=== PATIENT | male | born 1970 | race Caucasian/White ===

== ENCOUNTER 2021-06-12 12:53 | Emergency (ER) | payer BC, SELFPAY ==
[2021-06-12 12:54] VITALS: BP 155/90; PULSE 84; RESP 16; TEMP 36.8; O2SAT 97; BMI 27.0
--- NOTE | 2021-06-12 13:05 | CT_ITS ---
PROCEDURE: CT HEAD/BRAIN WO CON CLINICAL INDICATION: dizziness COMPARISON: No exams were available for comparison TECHNIQUE: Axial images obtained. All CT scans at the facility use one or more dose reduction, viz: automated exposure control, ma/kV adjustment per patient size (including targeted exams where dose is matched to indication, i.e. head), or iterative reconstruction technique. FINDINGS: No midline shift, mass effect, intracranial hemorrhage, hydrocephalus, or extra-axial fluid collection is evident. The calvarium has an unremarkable appearance. No mastoid effusion. No sinus air-fluid level. IMPRESSION: No acute intracranial finding Dictated by: Jay Cardozo MD 06/12/2021 13:44 Jay Cardozo MD in [facility] 06/12/2021 13:44
--- NOTE | 2021-06-12 13:05 | CT_ITS ---
Procedure: CT ANGIO NECK CTA HEAD CLINICAL HISTORY: dizziness COMPARISON: CT CT ANGIO HEAD from 06/12/2021 TECHNIQUE: IV Contrast: 100ml Isovue 370 Axial images obtained with sagittal and coronal reformats. All CT scans at the facility use one or more dose reduction, viz: automated exposure control, ma/kV adjustment per patient size (including targeted exams where dose is matched to indication, i.e. head), or iterative reconstruction technique. FINDINGS: CTA neck: The aortic arch has an unremarkable appearance as does the proximal aspect of the great vessels. Right carotid: Right common and right internal carotid artery have an unremarkable appearance. Left carotid: The left common and internal carotid artery have an unremarkable appearance. Right vertebral: Right vertebral is dominant. No stenotic lesions. No evidence of dissection Left vertebral: The left vertebral artery originates from the aortic arch and is hypoplastic. No significant stenotic lesion is evident. The right vertebral ends in PICA. CTA head: There is generalized luminal irregularity of the distal ICAs and M1 segments of both middle cerebral arteries. No carotid stenosis, occlusive change, or aneurysm is evident. The right vertebral gives rise to the basilar artery. The left vertebral ends in PICA. No aneurysm AVM or dissection. Incidental note is made of a 10 mm right thyroid nodule which is slightly hypodense may be due to cyst. No midline shift or mass effect. No enhancing lesions apparent IMPRESSION: 1. Negative CTA of the neck. 2. Mild luminal irregularity of the distal ICAs and M1 segments on both sides which may be seen with mild atheromatous changes. No significant stenotic lesion. No occlusion, aneurysm, AVM, or dissection. Dictated by: Jay Cardozo MD 06/12/2021 13:57 Jay Cardozo MD in [facility] 06/12/2021 13:57
[2021-06-12 13:27] LABS: Chloride 103 mmol/L (98-107); Potassium 4.3 mmoL/L (3.5-5.1); Sodium 142 mmol/L (136-145)
[2021-06-12 13:29] LABS: Blood Urea Nitrogen 18 mg/dl (9-20)
[2021-06-12 13:30] LABS: Alanine Aminotransferase 38 U/L (12-78); Albumin Level 4.6 g/dl (3.5-5.0); Albumin/Globulin Ratio 1.2 (1.1-1.8); Alkaline Phosphatase 84 U/L (38-126); Anion Gap 12.3 mEq/L (5-15); Aspartate Amino Transferase 30 U/L (17-59); Basophils % 0.2 % (0.1-2.0); Bilirubin,Total 0.7 mg/dl (0.2-1.3); Calcium 9.2 mg/dl (8.4-10.2); Carbon Dioxide 31 mmol/L (22.0-30.0); Creatinine Clearance Estimated 106 mL/min (50-200); Eosinophils % 0.2 % (0.1-12.0); Estimated Glomerular Filt Rate 71 ml/min (>60); GFR (African American) 86 ML/MIN (>60); Globulin 3.9 g/dL (1.3-3.2); Glucose 133 mg/dl (74-100); Hematocrit 45.6 % (42.0-52.0); Hemoglobin 15.3 g/dL (14.1-18.0); Lymphocytes # 2.3 K/mm3 (0.7-4.5); Lymphocytes % 15.9 % (10-50); Magnesium 1.8 mg/dl (1.6-2.3); Mean Corpuscular HGB Conc 33.5 g/dL (31.8-35.4); Mean Corpuscular Hemoglobin 29.9 pg (27.0-31.2); Mean Corpuscular Volume 89.3 fl (80-94); Mean Platelet Volume 7.8 fl (7.4-10.4); Monocytes # 0.9 K/mm3 (0.1-1.0); Monocytes % 6.5 % (1.7-9.3); Neutrophils # 10.9 K/mm3 (1.8-7.8); Neutrophils % 77.2 % (37.0-80.0); Platelet Count 318 K/mm3 (142-424); Red Blood Count 5.11 M/mm3 (4.60-6.20); Red Cell Distribution Width 13.6 % (11.5-17.5); Total Protein,Serum 8.5 g/dl (6.3-8.2); White Blood Count 14.2 K/mm3 (4.8-10.8)
--- NOTE | 2021-06-12 13:48 | [facility].EDDIZZ ---
ED Disposition Clinical Impression: Dizziness Disposition: Home, Self-Care Condition on Discharge: Good Instructions: Vertigo Referrals: Judson Vasques MD [Primary Care Provider] - - Critical Care Critical Care Time: No Attestation: On 06/12/21, the high probability of a clinically significant, sudden or life threatening deterioration of the following system(s) required my full and direct attention, intervention and personal management. The time I documented below is in addition to time spent performing reported procedures but includes the following listed in this critical care notation. Medical Decision Making - Medical Records Medical records reviewed: Yes: I reviewed the patient's medical records. - Juwan Inquiry Pt receiving controlled substance: No Vital Signs: 06/12/21 12:54 Temperature 98.3 F Temperature Source Oral Pulse Rate [Right] 84 Respiratory Rate 16 Blood Pressure [Right Arm] 155/90 H Blood Pressure Mean [Right Arm] 111 02 Sat by Pulse Oximetry 97 Oxygen Delivery Method Room Air - Lab Data Lab Results 06/12/21 13:11: WBC 14.2 H, RBC 5.11, Hgb 15.3, Hct 45.6, MCV 89.3, MCH 29.9, MCHC 33.5, RDW 13.6, Plt Count 318, MPV 7.8, Neut % (Auto) 77.2, Lymph % (Auto) 15.9, Rock % (Auto) 6.5, Eos % (Auto) 0.2, Baso % (Auto) 0.2, Neut # (Auto) 10.9 H, Lymph # (Auto) 2.3, Rock # (Auto) 0.9, Eos # (Auto) 0.0, Baso # (Auto) 0.0 06/12/21 13:11: Sodium 142, Potassium 4.3, Chloride 103, Carbon Dioxide 31 H, Anion Gap 12.3, BUN 18, Creatinine 1.10, Estimated Creat Clear 106, Estimated GFR 71, Est GFR ( Amer) 86, Glucose 133 H, Calcium 9.2, Magnesium 1.8, Total Bilirubin 0.7, AST 30, ALT 38, Alkaline Phosphatase 84, Total Protein 8.5 H, Albumin 4.6, Globulin 3.9 H, Albumin/Globulin Ratio 1.2, TSH 0.99 Result diagrams: 06/12/21 13:11 06/12/21 13:11 Orders (Tests/Meds): ED MEDICATIONS Discontinued Medications Generic Name Dose Route Start Last Admin Trade Name Edna PRN Reason Stop Dose Admin Sodium Chloride 1,000 mls @ 999 mls/hr 06/12/21 13:15 06/12/21 13:32 Sod Chlor 0.9% 1000ml Bag IV 06/12/21 14:15 999 mls/hr .Q1H1M KIKA Administration Iopamidol 100 ml 06/12/21 13:25 06/12/21 13:26 Iopamidol-370 (76%);100ml Bottle IV 06/12/21 13:26 100 ml ONCE ONE Administration Metoclopramide HCl 10 mg 06/12/21 13:06 06/12/21 13:32 Metoclopramide Hcl 10mg/2ml Vial IVP 06/12/21 13:07 10 mg ONCE ONE Administration Sodium Chloride 50 ml 06/12/21 13:25 06/12/21 13:26 0.9 % Sodium Chloride 50 Ml Vial IV 06/12/21 13:26 50 ml ONCE ONE Administration ORDERS Category Date Time Status Rapid PCR Covid and Flu A/B Stat Lab 06/12/21 14:22 Ordered Medical Decision Narrative: 50-year-old male presents with persistent dizziness. Neurological exam was otherwise unremarkable with no focal deficits. Unlikely to be posterior circulation issue or cerebellar issue. CT and CT angio obtained as screening exams. In the meantime given another dose of Reglan in the emergency department with IV fluids. Discussed case with Dr. Vasques as well who did recommend imaging. CTs were negative for central issue. He was feeling better on reexamination. Plan to refer to outpatient and Dr. Vasques to follow-up with patient as well Dizzy HPI - General Chief Complaint: Dizziness Stated Complaint: dizziness Time Seen by Provider: 06/12/21 13:00 Mode of Arrival: Family Vehicle Limitations: No Limitations Description of Symptoms (Recalled from ER Triage Doc. by RN): Patient reports dizziness for the last week. Patient reports he has a hx of dizziness in the past. Patient reports the dizziness is worse with head movement. Patient denies hx of a diagnosis vertigo. - History of Present Illness HPI Narrative: 50-year-old male presents with persistent dizziness. He says that he has a dizzy episode when he turns his head. He was recently evaluated by his primary care physic
[2021-06-12 14:00] VITALS: BP 135/80; PULSE 65; RESP 18; TEMP 36.8; O2SAT 97
[2021-06-12 14:01] LABS: Thyroid Stimulating Hormone 0.99 uIU/mL (0.465-4.68)
[2021-06-12 14:51] LABS: Coronavirus 19, PCR Not Detected (NotDetected); Influenza A, PCR Not Detected (NotDetected); Influenza B, PCR Not Detected (NotDetected)
== END 2021-06-12 14:45 | disposition home or self-care (01) ==
PROVIDERS: Emergency Provider Emergency Medicine; PCP Emergency Medicine
DX: R42 Dizziness and giddiness (principal); I10 Essential (primary) hypertension; Z87.891 Personal history of nicotine dependence; Z11.52 Encounter for screening for COVID-19
CPT/HCPCS: 70450; 70496; 70498; 80053; 83735; 84443; 85025; 96365; 99283; Q9967; U0003

== ENCOUNTER → 2021-06-20 09:27 | Outpatient (CLI) | payer BC, SELFPAY ==
--- NOTE | 2021-06-20 09:28 | MR_ITS ---
PROCEDURE: MR HEAD/BRAIN WO/W CON CLINICAL INDICATION: Recurrent dizziness, imbalance, sick delirium COMPARISON: No exams were available for comparison TECHNIQUE: Routine multiplanar multi echo sequences are performed without and with gadolinium enhancement. FINDINGS: No midline shift, mass effect, intracranial hemorrhage or acute infarction evident. There is a small nodular area of enhancement in the CP angle on the right lying along the anterior aspect of the cerebellum and the inferior aspect of the 7th and 8th nerve complex best detected on the post enhanced axial images series 9/image 7. This area measures 5 mm. This small lesion is isointense on T1 and T2. This is extra canalicular. This does not demonstrate restricted diffusion. No other areas of abnormal enhancement are evident. The pituitary, optic chiasm, corpus callosum, and craniocervical junction has an unremarkable appearance. There is a small nonspecific T2 white matter hyperintensity in the left frontal parietal junction. The hippocampal gyri have an unremarkable appearance. No mastoid effusion or sinus air-fluid level. The globes have an unremarkable appearance. IMPRESSION: 1. 5 mm enhancing lesion in the right CP angle suspicious for small acoustic neuroma. Small meningioma would be included in the differential diagnosis. This is without mass effect lying along the inferior extra canalicular aspect of the 7th and 8th nerve complex. Dedicated MRI of the CP angles with thin sections without and with contrast may better define this lesion if clinically desired. 2. Otherwise essentially negative MRI of the brain without and with contrast. Dictated by: Jay Cardozo MD 06/20/2021 14:54 Jay Cardozo MD in [facility] 06/20/2021 14:54
== END ==
PROVIDERS: PCP Emergency Medicine; Visit Provider Specialist
DX: R42 Dizziness and giddiness (principal); R26.89 Other abnormalities of gait and mobility
CPT/HCPCS: 70553; A9576

== ENCOUNTER → 2021-06-28 16:13 | Outpatient (CLI) | payer BC, SELFPAY ==
--- NOTE | 2021-06-28 16:14 | MR_ITS ---
PROCEDURE: MR HEAD/BRAIN WO/W CON CLINICAL INDICATION: Dedicated CP angles w/thin sections Recurring dizziness, imbalance, COMPARISON: MR MR HEAD/BRAIN WO/W CON from 06/20/2021 TECHNIQUE: Thin-section multiplanar multi echo sequences are performed without and with gadolinium enhancement. FINDINGS: A small area contrast enhancement is once again noted in the right CP angle as previously described. On thin sections however this appears to be contiguous with the transverse pontine vein and is felt to be related to asymmetric prominence of that structure as opposed to a true CP angle lesion. The left CP angle has an unremarkable appearance. No CP angle mass evident. The thin-section 3D space T2 images also confirm this finding. There is a similar area of enhancement on the left side but is less prominent representing the transverse pontine vein. IMPRESSION: 1. 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 2. Negative MRI of the CP angles. Dictated by: Jay Cardozo MD 07/02/2021 08:11 Jay Cardozo MD in [facility] 07/02/2021 08:11
== END ==
PROVIDERS: PCP Emergency Medicine; Visit Provider Specialist
DX: R42 Dizziness and giddiness (principal); R26.89 Other abnormalities of gait and mobility; G93.9 Disorder of brain, unspecified; R90.89 Other abnormal findings on diagnostic imaging of central nervous system
CPT/HCPCS: 70553; A9576

== ENCOUNTER 2021-07-18 16:30 | Outpatient (RCR) | payer BC, SELFPAY ==
--- NOTE | 2021-07-10 15:51 | [facility].PTOPEV ---
PT Outpatient Evaluation Rehab PT Outpatient Evaluation Start: 07/10/21 14:38 Freq: Status: Active Protocol: Document 07/10/21 14:38 [email or web address] (Rec: 07/10/21 15:50 [email or web address] [id number]) Electronically Signed By Hosea Rojas, PT 07/10/21 14:38 Outpatient Therapy Subjective History Subjective History Pt. is a 50 year old male who presents to Outpatient P.T. clinic w/ c/o subacute and intermittent nystagmus, dizziness, light headedness, and head pouding of insidious onset since 06/06. Pt. reports symptoms were constant at first, but states symptoms are more intermittent at this time. Pt. reports symptoms arising after he quit taking his Hypertension medication, but wasn't sure if there was correlation. Pt. reports quick head movements provoke symptoms. Recent diagnostic imaging(CT scan and MRI of the brain x 2 ea.) were negative per pt. report. Pt. also reports WNL regarding his vision after seeing an Transportation Engineer regarding current symptom complaint. Pt. reports currently being on short term disability at the moment regarding symptoms, but states returning to occupational duties 07/29/21. Pt. RTMD in ~3 wks. Current medications include a steroid pack, Valium, Tylenol, and Aleve. PMH includes Hypertension. Chief Complaint Other Symptom Type Other Symptoms Relieved By Rest/Positioning,Prescription Meds Symptoms Aggravated By Supine,Bending/Stooping, Twisting Prior Functional Limitations None Current Functional Limitations Driving,Standing,Recreation Activity,Walking,Balance, Bending/Stooping Symptom Description Intermittent,Activity Dependent Level of pain today (0-1
== END 2021-08-13 08:13 | disposition home or self-care (01) ==
LOC: PT.CARL 16:30
PROVIDERS: Visit Provider Specialist
DX: R42 Dizziness and giddiness (principal)
CPT/HCPCS: 97163

== ENCOUNTER → 2022-09-01 14:44 | Outpatient (CLI) | payer BC, SELFPAY ==
[2022-09-01 15:05] LABS: Anion Gap 15.8 mEq/L (5-15); Blood Urea Nitrogen 17 mg/dl (9-20); Calcium 10.3 mg/dl (8.4-10.2); Carbon Dioxide 30 mmol/L (22.0-30.0); Chloride 99 mmol/L (98-107); Estimated Glomerular Filt Rate 89 ml/min (>60); GFR (African American) 108 ML/MIN (>60); Glucose 84 mg/dl (74-100); Potassium 4.8 mmoL/L (3.5-5.1); Sodium 140 mmol/L (136-145)
== END ==
PROVIDERS: PCP Emergency Medicine; Visit Provider Emergency Medicine
DX: I10 Essential (primary) hypertension (principal)
CPT/HCPCS: 80048

== ENCOUNTER 2024-02-23 18:00 | Outpatient (CLI) | payer BC, SELFPAY ==
[2024-02-23 17:08] LABS: Basophils % 0.4 % (0.1-2.0); Eosinophils # 0.1 K/mm3 (0.0-0.4); Eosinophils % 1.3 % (0.1-12.0); Hematocrit 44.3 % (42.0-52.0); Hemoglobin 14.5 g/dL (14.1-18.0); Lymphocytes # 2.2 K/mm3 (0.7-4.5); Lymphocytes % 29.3 % (10-50); Mean Corpuscular HGB Conc 32.7 g/dL (31.8-35.4); Mean Corpuscular Hemoglobin 30.9 pg (27.0-31.2); Mean Corpuscular Volume 94.6 fl (80-94); Monocytes # 0.5 K/mm3 (0.1-1.0); Monocytes % 7.1 % (1.7-9.3); Neutrophils # 4.5 K/mm3 (1.8-7.8); Neutrophils % 61.9 % (37.0-80.0); Platelet Count 351 K/mm3 (142-424); Red Blood Count 4.68 M/mm3 (4.60-6.20); Red Cell Distribution Width 13.8 % (11.5-17.5); White Blood Count 7.3 K/mm3 (4.8-10.8)
[2024-02-23 17:10] LABS: Alanine Aminotransferase 31 U/L (12-78); Albumin Level 4.2 g/dl (3.5-5.0); Albumin/Globulin Ratio 1.3 (1.1-1.8); Alkaline Phosphatase 92 U/L (38-126); Anion Gap 9.6 mEq/L (5-15); Aspartate Amino Transferase 31 U/L (17-59); Blood Urea Nitrogen 16 mg/dl (9-20); Calcium 9.8 mg/dl (8.4-10.2); Carbon Dioxide 26 mmol/L (22.0-30.0); Chloride 107 mmol/L (98-107); Chol/HDL Ratio 5.1 (1-3.5); Cholesterol 209 mg/dl (140-200); Estimated Glomerular Filt Rate 70 ml/min (>60); GFR (African American) 85 ML/MIN (>60); Globulin 3.3 g/dL (1.3-3.2); Glucose 119 mg/dl (74-100); HDL Cholesterol 41 mg/dl (40-60); Potassium 4.6 mmoL/L (3.5-5.1); Sodium 138 mmol/L (136-145); Total Protein,Serum 7.5 g/dl (6.3-8.2); Triglycerides 92 mg/dl (30-150); VLDL Cholesterol 18 mg/dL (0-40)
[2024-02-23 17:21] LABS: Direct LDL Cholesterol 131.59 mg/dL (100-129)
[2024-02-23 17:40] LABS: Thyroid Stimulating Hormone 1.21 uIU/mL (0.465-4.68)
[2024-02-23 19:10] LABS: Hemoglobin A1C 6.1 % (4.0-6.0)
== END 2024-02-23 23:59 | disposition home or self-care (01) ==
LOC: LAB.DROPOF 02-24 13:02
PROVIDERS: PCP Nurse Practitioner Family; Visit Provider Nurse Practitioner Family
DX: I10 Essential (primary) hypertension (principal); Z87.891 Personal history of nicotine dependence
CPT/HCPCS: 80053; 80061; 83036; 84443; 85025

== ENCOUNTER 2024-12-06 14:15 | Outpatient (CLI) | payer BC, SELFPAY ==
[2024-12-06 17:12] LABS: Basophils % 0.5 % (0.1-2.0); Eosinophils # 0.2 K/mm3 (0.0-0.4); Eosinophils % 2.6 % (0.1-12.0); Hematocrit 44.6 % (42.0-52.0); Hemoglobin 14.6 g/dL (14.1-18.0); Lymphocytes # 2.3 K/mm3 (0.7-4.5); Lymphocytes % 37.8 % (10-50); Mean Corpuscular HGB Conc 32.7 g/dL (31.8-35.4); Mean Corpuscular Hemoglobin 29.9 pg (27.0-31.2); Mean Corpuscular Volume 91.4 fl (80-94); Mean Platelet Volume 10.2 fl (7.4-10.4); Monocytes # 0.7 K/mm3 (0.1-1.0); Monocytes % 11.2 % (1.7-9.3); Neutrophils # 2.9 K/mm3 (1.8-7.8); Neutrophils % 47.6 % (37.0-80.0); Platelet Count 309 K/mm3 (142-424); Red Blood Count 4.88 M/mm3 (4.60-6.20); Red Cell Distribution Width 12.9 % (11.5-17.5); White Blood Count 6.2 K/mm3 (4.8-10.8)
[2024-12-06 17:34] LABS: Alanine Aminotransferase 40 U/L (12-78); Albumin Level 4.5 g/dl (3.5-5.0); Albumin/Globulin Ratio 1.6 (1.1-1.8); Alkaline Phosphatase 64 U/L (38-126); Aspartate Amino Transferase 35 U/L (17-59); Bilirubin,Total 1.2 mg/dl (0.2-1.3); Blood Urea Nitrogen 10 mg/dl (9-20); Calcium 9.9 mg/dl (8.4-10.2); Carbon Dioxide 30 mmol/L (22.0-30.0); Chloride 100 mmol/L (98-107); Chol/HDL Ratio 7.5 (1-3.5); Cholesterol 217 mg/dl (140-200); Estimated Glomerular Filt Rate 70 ml/min (>60); GFR (African American) 84 ML/MIN (>60); Globulin 2.9 g/dL (1.3-3.2); Glucose 70 mg/dl (74-100); HDL Cholesterol 29 mg/dl (40-60); Sodium 141 mmol/L (136-145); Total Protein,Serum 7.4 g/dl (6.3-8.2); Triglycerides 161 mg/dl (30-150); VLDL Cholesterol 32 mg/dL (0-40)
[2024-12-06 17:37] LABS: Anion Gap 15.3 mEq/L (5-15); Potassium 4.3 mmoL/L (3.5-5.1)
[2024-12-06 17:45] LABS: Direct LDL Cholesterol 134.82 mg/dL (100-129)
[2024-12-06 17:49] LABS: 25-OH Vitamin D, Total 28.1 ng/mL (30-100)
[2024-12-06 18:15] LABS: Hemoglobin A1C 5.9 % (4.0-6.0)
[2024-12-06 18:46] LABS: Thyroid Stimulating Hormone 1.55 uIU/mL (0.465-4.68)
== END 2024-12-06 23:59 | disposition home or self-care (01) ==
LOC: LAB.DROPOF 12-07 11:02
PROVIDERS: PCP Nurse Practitioner Family; Visit Provider Nurse Practitioner Family
DX: I10 Essential (primary) hypertension (principal); R73.03 Prediabetes; E78.00 Pure hypercholesterolemia, unspecified
CPT/HCPCS: 80053; 80061; 82306; 83036; 84443; 85025

== ENCOUNTER 2025-03-13 08:55 | Outpatient (CLI) | payer BC, SELFPAY ==
[2025-03-13 18:26] LABS: Basophils % 0.6 % (0.1-2.0); Eosinophils # 0.2 Kmm3 (0.0-0.4); Eosinophils % 2.3 % (0.1-12.0); Hematocrit 45.4 % (42.0-52.0); Hemoglobin 14.8 g/dL (14.1-18.0); Immature Granulocytes # 0.05 10^3uL; Immature Granulocytes % 0.8 %; Lymphocytes % 30.7 % (10-50); Mean Corpuscular HGB Conc 32.6 g/dL (31.8-35.4); Mean Corpuscular Hemoglobin 30.4 pg (27.0-31.2); Mean Corpuscular Volume 93.2 fl (80-94); Mean Platelet Volume 10.2 fl (7.4-10.4); Monocytes # 0.7 K/mm3 (0.1-1.0); Monocytes % 10.4 % (1.7-9.3); Neutrophils # 3.7 K/mm3 (1.8-7.8); Neutrophils % 55.2 % (37.0-80.0); Nucleated Red Blood Cells # 0 10^3/uL; Nucleated Red Blood Cells % 0 %; Platelet Count 303 K/mm3 (142-424); Red Blood Count 4.87 M/mm3 (4.60-6.20); Red Cell Distribution Width 13.2 % (11.5-17.5); Red Cell Distribution Width-SD 45.3 fL; White Blood Count 6.7 K/mm3 (4.8-10.8)
[2025-03-13 20:31] LABS: Albumin Level 4.6 g/dl (3.5-5.0); Chloride 103 mmol/L (98-107); Potassium 4.8 mmoL/L (3.5-5.1); Sodium 139 mmol/L (136-145)
[2025-03-13 20:33] LABS: Blood Urea Nitrogen 15 mg/dl (9-20); Estimated Glomerular Filt Rate 78 ml/min (>60); GFR (African American) 94 ML/MIN (>60)
[2025-03-13 20:34] LABS: Alanine Aminotransferase 43 U/L (12-78); Albumin/Globulin Ratio 1.6 (1.1-1.8); Alkaline Phosphatase 93 U/L (38-126); Anion Gap 11.8 mEq/L (5-15); Aspartate Amino Transferase 36 U/L (17-59); Bilirubin,Total 0.8 mg/dl (0.2-1.3); Calcium 9.8 mg/dl (8.4-10.2); Carbon Dioxide 29 mmol/L (22.0-30.0); Chol/HDL Ratio 6.7 (1-3.5); Cholesterol 227 mg/dl (140-200); Globulin 2.9 g/dL (1.3-3.2); Glucose 64 mg/dl (74-100); HDL Cholesterol 34 mg/dl (40-60); Total Protein,Serum 7.5 g/dl (6.3-8.2); Triglycerides 261 mg/dl (30-150); VLDL Cholesterol 52 mg/dL (0-40)
[2025-03-13 20:45] LABS: Direct LDL Cholesterol 125.69 mg/dL (100-129)
[2025-03-13 20:57] LABS: 25-OH Vitamin D, Total 18.2 ng/mL (30-100)
[2025-03-13 21:04] LABS: Thyroid Stimulating Hormone 2.55 uIU/mL (0.465-4.68)
[2025-03-13 21:22] LABS: Hemoglobin A1C 5.9 % (4.0-6.0)
== END 2025-03-13 23:59 | disposition home or self-care (01) ==
LOC: LAB.DROPOF 21:53
PROVIDERS: PCP Nurse Practitioner Family; Visit Provider Nurse Practitioner Family
DX: E55.9 Vitamin D deficiency, unspecified (principal); I10 Essential (primary) hypertension; Z87.891 Personal history of nicotine dependence
CPT/HCPCS: 80053; 80061; 82306; 83036; 84443; 85025

== ENCOUNTER 2025-09-14 08:55 | Outpatient (CLI) | payer BC, SELFPAY ==
[2025-09-14 17:03] LABS: Hematocrit 42.2 % (42.0-52.0); Hemoglobin 13.6 g/dL (14.1-18.0); Immature Granulocytes % 0.5 %; Mean Corpuscular HGB Conc 32.2 g/dL (31.8-35.4); Mean Corpuscular Hemoglobin 30.0 pg (27.0-31.2); Mean Corpuscular Volume 93.2 fl (80-94); Nucleated Red Blood Cells % 0 %; Platelet Count 283 K/mm3 (142-424); Red Blood Count 4.53 M/mm3 (4.60-6.20); Red Cell Distribution Width-SD 44.9 fL; White Blood Count 5.6 K/mm3 (4.8-10.8)
[2025-09-14 17:35] LABS: Albumin Level 4.3 g/dl (3.5-5.0); Chloride 104 mmol/L (98-107); Sodium 144 mmol/L (136-145)
[2025-09-14 17:36] LABS: Potassium 4.4 mmoL/L (3.5-5.1)
[2025-09-14 17:38] LABS: Alanine Aminotransferase 35 U/L (12-78); Albumin/Globulin Ratio 1.4 (1.1-1.8); Anion Gap 19.4 mEq/L (5-15); Aspartate Amino Transferase 37 U/L (17-59); Blood Urea Nitrogen 13 mg/dl (9-20); Carbon Dioxide 25 mmol/L (22.0-30.0); Creatinine,Serum 1.00 mg/dl (0.66-1.25); Estimated Glomerular Filt Rate 78 ml/min (>60); GFR (African American) 94 ML/MIN (>60); Globulin 3.1 g/dL (1.3-3.2); Total Protein,Serum 7.4 g/dl (6.3-8.2)
[2025-09-14 17:39] LABS: Alkaline Phosphatase 75 U/L (38-126); Bilirubin,Total 0.7 mg/dl (0.2-1.3); Calcium 9.4 mg/dl (8.4-10.2); Cholesterol 204 mg/dl (140-200); Glucose 61 mg/dl (74-100); HDL Cholesterol 39 mg/dl (40-60); Triglycerides 98 mg/dl (30-150)
[2025-09-14 18:27] LABS: Hepatitis C Ab Qual. W/ RFX NEGATIVE (Negative)
[2025-09-14 19:01] LABS: Hemoglobin A1C 6.0 % (4.0-6.0)
[2025-09-15 02:14] LABS: 25-OH Vitamin D, Total 22.4 ng/mL (30-100)
[2025-09-16 06:10] LABS: Hepatitis B Surface Antigen Negative (Negative)
== END 2025-09-14 23:59 | disposition home or self-care (01) ==
LOC: LAB.DROPOF 09-15 10:48
PROVIDERS: PCP Nurse Practitioner Family; Visit Provider Nurse Practitioner Family
DX: E78.5 Hyperlipidemia, unspecified (principal); R73.03 Prediabetes; E55.9 Vitamin D deficiency, unspecified; Z11.59 Encounter for screening for other viral diseases; Z11.4 Encounter for screening for human immunodeficiency virus [HIV]
CPT/HCPCS: 80053; 80061; 82306; 83036; 85025; 86803; 87340; 87389